=== PATIENT | female | born 1985 | race American Indian/Alaskan Native ===

== ENCOUNTER 2018-01-14 21:20 | Emergency (ER) | payer BC, MEDICAID ==
--- NOTE | 2018-01-14 22:47 | EDM.PDOC ---
ED HPI GENERAL MEDICAL PROBLEM - General Chief Complaint: ENT Problem Stated Complaint: SORE THROAT Time Seen by Provider: 01/14/18 21:24 Source of Information: Reports: Patient, Family (Mother) History Limitations: Reports: No Limitations - History of Present Illness INITIAL COMMENTS - FREE TEXT/NARRATIVE: sore throat, ear pain, congestion and cough; this a 32 year old female presents to ER with symptoms since last week. 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 She is exposed to sick children daily. she is currently breast feeding once a day. general good health, no chronic medications. Onset: Gradual Duration: Week(s): (one) Location: Reports: Generalized Quality: Reports: Ache (throat), Burning (throat), Stabbing (ears) Severity: Moderate Improves with: Reports: None Worsens with: Reports: None Context: Reports: Sick Contact Associated Symptoms: Reports: Cough Treatments HOUSE CALLS NURSE PRACTITIONER: Reports: Acetaminophen, Other (see below) Other Treatments HOUSE CALLS NURSE PRACTITIONER: Unknown Throat Pain Score (Numeric/FACES): 6 - Related Data Allergies Allergy/AdvReac Type Severity Reaction Status Date / Time No Known Allergies Allergy Verified 01/14/18 21:39 Home Meds: Home Meds NK [No Known Home Meds] 01/14/18 [History] Past Medical History [employer] W[employer] ROOTED HAIR History: Reports: - Infectious Disease History Infectious Disease History: Reports: Chicken Pox - Past Surgical History Female Surgical History: Reports: Section Social & Family History - Tobacco Use Smoking Status *Q: Never Smoker Second Hand Smoke Exposure: No - Caffeine Use Caffeine Use: Reports: Soda - Recreational Drug Use Recreational Drug Use: No - Living Situation & Occupation Occupation: Employed ([employer]) ED ROS ENT - Review of Systems Review Of Systems: See Below Constitutional: Reports: Fever, Chills, Malaise, Fatigue HEENT: Reports: Ear Pain, Rhinitis, Sinus Problem, Throat Pain Respiratory: Reports: Cough Cardiovascular: Reports: No Symptoms Endocrine: Reports: Fatigue GI/Abdominal: Reports: No Symptoms : Reports: No Symptoms Musculoskeletal: Reports: Muscle Pain, Muscle Stiffness Skin: Reports: No Symptoms Neurological: Reports: No Symptoms Psychiatric: Reports: No Symptoms Hematologic/Lymphatic: Reports: No Symptoms Immunologic: Reports: No Symptoms ED EXAM, ENT - Physical Exam Exam: See Below Exam Limited By: No Limitations General Appearance: Alert, WD/WN, No Apparent Distress Eye Exam: Bilateral Eye: Normal Inspection, PERRL Ears: Normal External Exam, Normal Canal, TM Bulging, TM Dullness, TM Erythema Nose: No Blood, Nasal Swelling, Injected Turbinates Mouth/Throat: Normal Inspection, Normal Gums, Normal Lips, Normal Oropharynx, Normal Teeth Head: Atraumatic, Normocephalic Neck: Normal Inspection, Supple, Non-Tender, Full Range of Motion Respiratory/Chest: No Respiratory Distress, Lungs Clear, Normal Breath Sounds, No Accessory Muscle Use, Chest Non-Tender Cardiovascular: Normal Peripheral Pulses, Regular Rate, Rhythm, No Edema, No Gallop, No JVD, No Murmur, No Rub GI/Abdominal: Normal Bowel Sounds, Soft, Non-Tender, No Organomegaly, No Distention, No Abnormal Bruit, No Mass Back: Normal Inspection, Full Range of Motion Extremities: Normal Inspection, Normal Range of Motion, Non-Tender, No Pedal Edema, Normal Capillary Refill Neurological: Alert Psychiatric: Normal Affect, Normal Mood, Tearful Skin: Warm, Dry, Intact, Normal Color, No Rash Lymphatic: No Adenopathy Course - Vital Signs Last Recorded V/S: Last Vital Signs Temp 36.1 C 01/14/18 21:35 Pulse 62 01/14/18 21:35 Resp 12 01/14/18 21:35 BP 118/80 01/14/18 21:35 Pulse Ox 95 01/14/18 21:35 - Orders/Labs/Meds Orders: Active Orders 24 hr Category Date Time Status CULTURE STREP A CONFIRMATION [] Stat Lab 01/14/18 21:44 Results STREP SCRN A RAPID W CULT CONF [] Stat Lab 01/14/18 21:44 Results Meds: Medications Discontinued Medications Generic Name Dose Route Start Last Admin Trade Name Sergioq PRN Reason Stop Dose Admin Ketorolac Tromethamine 60 mg 01/14/18 22:39 01/14/18 22:49 Toradol IM 01/14/18 22:40 60 mg ONETIME ONE Administration - Re-Assessments/Exams Free Text/Narrative Re-Assessment/Exam: 01/15/18 rapid strep negative,throat culture pending given Toradol 60mg IM for ear and throat pain will discharge to home with Inst[facility]; zithromax, robitussin ac, motrin sick slip for work Ms. Vasquez and her Mom agree with plan of care. Departure - Departure Time of Disposition: 23:10 Disposition: Home, Self-Care 01 Condition: Good Clinical Impression: Upper respiratory infection with cough and congestion Otitis media Qualifiers: Otitis media type: suppurative Chronicity: acute Laterality: left Recurrence: not specified as recurrent Spontaneous tympanic membrane rupture: without spontaneous rupture Qualified Code(s): H66.002 - Acute suppurative otitis media without spontaneous rupture of ear drum, left ear - Discharge Information *PRESCRIPTION DRUG MONITORING PROGRAM REVIEWED*: Not Applicable *COPY OF PRESCRIPTION DRUG MONITORING REPORT IN PATIENT BERNARD: Not Applicable Instructions: Upper Respiratory Infection, Adult, [id number], Otitis Media, Adult Referrals: PCP,None [Primary Care Provider] - Forms: ED Department Discharge Care Plan Goals: Upper Respiratory infection with cough and congestion ear infection -Zithromax 2 tablet tonight, then one daily for 4 days -Robitussin AC 10 ml every 4 to6 hours as needed for cough -Motrin 600mg one every 6 to 8 hours as needed for pain or fever -Sick slip for work -follow up with ER, Urgent Care or Primary Care for recheck if not improved or symptoms worsen - Problem List & Annotations (1) Otitis media SNOMED Code(s): 80993769 Code(s): H66.90 - OTITIS MEDIA, UNSPECIFIED, UNSPECIFIED EAR Status: Acute Priority: Medium Qualifiers: Otitis media type: suppurative Chronicity: acute Laterality: left Recurrence: not specified as recurrent Spontaneous tympanic membrane rupture: without spontaneous rupture Qualified Code(s): H66.002 - Acute suppurative otitis media without spontaneous rupture of ear drum, left ear (2) Upper respiratory infection with cough and congestion SNOMED Code(s): 18652333 Code(s): J06.9 - ACUTE UPPER RESPIRATORY INFECTION, UNSPECIFIED Status: Acute Priority: Medium - Problem List Review Problem List Initiated/Reviewed/Updated: Yes - My Orders Last 24 Hours: My Active Orders 01/14/18 21:44 CULTURE STREP A CONFIRMATION [RM] Stat STREP SCRN A RAPID W CULT CONF [] Stat - Assessment/Plan Last 24 Hours: My Active Orders 01/14/18 21:44 CULTURE STREP A CONFIRMATION [RM] Stat STREP SCRN A RAPID W CULT CONF [] Stat Plan: Upper Respiratory infection with cough and congestion ear infection -Zithromax 2 tablet tonight, then one daily for 4 days -Robitussin AC 10 ml every 4 to6 hours as needed for cough -Motrin 600mg one every 6 to 8 hours as needed for pain or fever -Sick slip for work -follow up with ER, Urgent Care or Primary Care for recheck if not improved or symptoms worsen
[2018-01-14] MEDS: Ketorolac 60 MG/2 ML SDV IM ONE (22:49)
== END 2018-01-14 23:10 | disposition home or self-care (01) ==
LOC: JP.ED 21:20
DX: J06.9 Acute upper respiratory infection, unspecified (principal); H66.002 Acute suppurative otitis media without spontaneous rupture of ear drum, left ear
CPT/HCPCS: 87081; 87430; 96372; 99283; J1885

== ENCOUNTER 2020-11-23 16:07 | Emergency (ER) | payer MEDICAID | END 2020-11-23 16:35 | disposition left against medical advice (07) | LOC: JP.ED 16:07 | DX: F41.9 Anxiety disorder, unspecified (principal); Z53.21 Procedure and treatment not carried out due to patient leaving prior to being seen by health care provider ==